=== PATIENT | male | born 1970 | race Caucasian/White ===

== ENCOUNTER → 2020-03-05 | Outpatient (REF) | payer OTHER | LOC: M LAB REF 10:24 | PROVIDERS: ATTEND Dermatology | DX: C44.309 Unspecified malignant neoplasm of skin of other parts of face (principal) ==

== ENCOUNTER → 2022-03-13 | Outpatient (CLI) | payer OTHER | LOC: M LABSMTC 08:51 | PROVIDERS: ATTEND Anesthesiology | DX: Z01.812 Encounter for preprocedural laboratory examination (principal); Z20.822 Contact with and (suspected) exposure to COVID-19 ==

== ENCOUNTER 2022-03-16 12:05 | Day surgery (SDC) | payer OTHER ==
[~2022-03-16] VITALS: Ht 172.7 cm; Wt 83.9 kg
[~2022-03-16 12:05] MED LIST: NS 1,000 ML IV ONE
[2022-03-16] MEDS ORDERED: LIDOCAINE 2% 100MG/5ML SDV (FOR ANES.) As Ordered ONE (12:45)
[2022-03-16] MEDS ORDERED: propofoL 200 MG/20 ML VIAL As Ordered ONE ×2 (12:45→13:27)
[2022-03-16 14:26] VITALS: BP 109/68
== END 2022-03-16 14:25 | disposition home or self-care (01) ==
LOC: M OPP 12:05
PROVIDERS: ATTEND Internal Medicine Gastroenterology
DX: Z12.11 Encounter for screening for malignant neoplasm of colon (principal); D12.6 Benign neoplasm of colon, unspecified; K64.0 First degree hemorrhoids; K57.30 Diverticulosis of large intestine without perforation or abscess without bleeding; Z87.891 Personal history of nicotine dependence

== ENCOUNTER 2023-03-08 10:45 | Emergency (ER) | payer OTHER ==
[~2023-03-08] VITALS: Ht 172.7 cm; Wt 88.9 kg
[2023-03-08] MEDS ORDERED: VITA250T20 PO (11:10)
[2023-03-08] MEDS ORDERED: VITA100093 PO (11:10)
[2023-03-08] MEDS ORDERED: methocarbamoL 500 MG TAB PO ONE (14:20)
[2023-03-08] MEDS ORDERED: KETOROLAC 30 MG/ML 1ML VIAL IM ONE (14:20)
[2023-03-08] MEDS ORDERED: METH-1164 PO (14:21)
[2023-03-08 14:31] VITALS: BP 147/96; TEMP 96.9; O2SAT 98
== END 2023-03-08 14:36 | disposition home or self-care (01) ==
LOC: M ED 10:45
DX: S43.422A Sprain of left rotator cuff capsule, initial encounter (principal); X50.0XXA Overexertion from strenuous movement or load, initial encounter; Y92.89 Other specified places as the place of occurrence of the external cause; Y93.89 Activity, other specified; Y99.0 Civilian activity done for income or pay; Z79.899 Other long term (current) drug therapy
CPT/HCPCS: 73030; 96372; 99283; J1885

== ENCOUNTER → 2023-04-28 | Outpatient (CLI) | payer OTHER ==
[~2023-04-28] MED LIST changes: +METH-1164 PO; -NS 1,000 ML IV ONE; +VITA100093 PO; +VITA250T20 PO
== END ==
LOC: M RAD 11:02
PROVIDERS: ATTEND Physician Assistant
DX: M75.102 Unspecified rotator cuff tear or rupture of left shoulder, not specified as traumatic (principal); M25.512 Pain in left shoulder